=== PATIENT | female | born 1985 | race Two or more races ===

== ENCOUNTER 2024-03-07 13:14 | Emergency (ER) | payer MEDICAID, SELFPAY ==
[2024-03-07 13:39] VITALS: BP 128/63; PULSE 86; RESP 18; TEMP 37.1; O2SAT 97; BMI 49.6
--- NOTE | 2024-03-07 13:45 | XR_ITS ---
Examination: PA lateral chest 2 views TECHNIQUE: Upright PA lateral chest 2 views Exam date and time: March 07, 2024 1353 hours INDICATIONS: Coughing congestion beginning 3 days ago. FINDINGS: Normal heart size Lungs are clear. The osseous structures are intact IMPRESSION: No active disease
--- NOTE | 2024-03-07 13:45 | PD.EDRME ---
Rapid Medical Screening Exam E Arrival date/time: 03/07/24 13:14 39-year-old female presents the emergency department with complaints of cough, congestion, body aches patient history of valley fever Chief Complaint: Flu Like Symptoms Vital signs: Vital Signs Temperature 98.8 F 03/07/24 13:39 Pulse Rate 86 03/07/24 13:39 Respiratory Rate 18 03/07/24 13:39 Blood Pressure 128/63 03/07/24 13:39 Pulse Oximetry (%) 97 03/07/24 13:39 Oxygen Delivery Method Room Air 03/07/24 13:39
[2024-03-07 15:10] LABS: Collection Type, Urine Clean Catch
[2024-03-07 15:21] LABS: HCG Qualitative,Urine Negative
[2024-03-07 15:25] LABS: Bilirubin,Urine Negative (Negative); Blood,Urine Negative (Negative); Clarity,Urine Clear (Clear/Hazy); Color,Urine Yellow (Lt Yel-Yel); Culture Indicated,Urine Not Indicated; Glucose, Urine Negative (Negative); Ketones,Urine 2+ (Negative); Leukocyte Esterase,Urine Negative (Negative); Nitrite,Urine Negative (Negative); PH,Urine 6.5 (5.0-7.0); Protein,Urine 1+ (Neg - Trace); RBC,Urine 3 /hpf (0-3); Specific Gravity,Urine 1.038 (1.001-1.035); Squamous Epithelial Cell,Urine 3 /hpf (0-5); WBC,Urine 4 /hpf (0-5)
[2024-03-07 15:27] LABS: Basophils % (Auto) 1 % (0-2.5); Eosinophils % (Auto) 0 % (0-10); Hematocrit 43.8 % (36.0-46.0); Hemoglobin 14.5 g/dL (12.0-16.0); Immature Granulocytes % (Auto) 0 % (0-0); Immature Granulocytes Auto 0.02 Thou/mm3 (0.00-0.00); Lymphocytes # (Auto) 2.2 Thou/mm3 (1.0-4.8); Lymphocytes % (Auto) 36 % (10-50); Mean Corpuscular HGB Conc 33.1 g/dl (31.0-37.0); Mean Corpuscular Hemoglobin 27.8 pg (25.0-35.0); Mean Corpuscular Volume 84 fL (80-100); Monocytes % (Auto) 17 % (0-12); Neutrophils # (Auto) 2.8 Thou/mm3 (1.8-7.7); Neutrophils % (Auto) 46 % (37-80); Nucleated Red Blood Cell % 0 /100 WBC (0); Platelet Count 192 Thou/mm3 (140-440); RDW Standard Deviation 41.6 fL (36.4-46.3); Red Blood Count 5.22 Miln/mm3 (4.00-5.20); White Blood Count 6.1 Thou/mm3 (3.6-11.0)
[2024-03-07 15:46] LABS: Alanine Aminotransferase 23 U/L (10-49); Albumin, Serum 5.3 gm/dL (3.5-5.0); Albumin/Globulin Ratio 1.6 (1.2-2.2); Alkaline Phosphatase 133 U/L (46-116); Anion Gap 10 (7-16); Aspartate Amino Transferase 18 U/L (0-34); BUN/Creatinine Ratio 18 Ratio (12-20); Bilirubin,Total 0.5 mg/dL (0.3-1.2); Blood Urea Nitrogen 14 mg/dL (9-23); Calcium 9.3 mg/dL (8.3-10.6); Calcium (Corrected) 9.3 mg/dL (8.5-10.1); Carbon Dioxide 26.1 mMol/L (20.0-31.0); Chloride 98 mMol/L (98-107); Creatinine (Component) 0.8 mg/dL (0.6-1.3); Estimated Creatinine Clearance 121.4 mL/min (>60); Globulin 3.3 gm/dL (2.3-3.5); Glucose 125 mg/dL (74-106); Osmolality,Calculated 269 (275-295); Potassium 3.3 mMol/L (3.4-5.1); Sodium 134 mMol/L (136-145); Total Protein 8.6 gm/dL (5.7-8.2); eGFR > 60 See Note
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
== END 2024-03-07 16:36 | disposition home or self-care (01) ==
PROVIDERS: Nurse Practitioner Primary Care; Emergency Provider Emergency Medicine
DX: J11.1 Influenza due to unidentified influenza virus with other respiratory manifestations (principal)
CPT/HCPCS: 36415; 71046; 80053; 81001; 81025; 85025; 87400; 99283